=== PATIENT | female | born 1960 | race Caucasian/White ===

== ENCOUNTER 2019-04-06 21:43 | Inpatient (IN) | payer MEDICARE ==
[~2019-04-06] VITALS: Ht 162.6 cm; Wt 72.1 kg
--- NOTE | 2019-04-06 23:10 | NUR ---
PT NOT IN LOBBY WHEN CALLED.
--- NOTE | 2019-04-06 23:23 | NUR ---
PT FOUND IN WHEEL CHAIR OUTSIDE. STATES "I NEEDED FRESH AIR". PT WOULD STILL LIKE TO BE SEEN. PT TO RM [phone].
[2019-04-07 00:02] LABS: MEAN CORPUSCULAR HEMOGLOBIN 32.2 pg (27.0-34.8); MEAN CORPUSCULAR HGB CONC 33.2 g/dL (32.4-35.8); MEAN PLATELET VOLUME 9.8 fL (7.4-10.4); PLATELET COUNT 82 x10^3/uL (130-400); RED BLOOD COUNT 3.79 x10^6/uL (3.82-5.3); RED CELL DISTRIBUTION WIDTH 15.3 % (9.6-15.2)
[2019-04-07 00:10] LABS: ANION GAP 6 mmol/L (5-15); CALCIUM 7.9 mg/dL (8.5-10.1); CHLORIDE 108 mmol/L (98-107); CREATININE 0.74 mg/dL (0.55-1.02)
[2019-04-07 00:12] LABS: CREATINE KINASE, TOTAL 115 U/L (26-192)
[2019-04-07 00:23] LABS: BASOPHILS # (AUTO) 0.02 x10^3/uL (0-0.1); BASOPHILS % (AUTO) 1 % (0-1); EOSINOPHILS % (AUTO) 2 % (1-7); LYMPHOCYTES # (AUTO) 1.21 x10^3/uL (1-3.4); LYMPHOCYTES % (AUTO) 27 % (22-44); MD SCAN; MONOCYTES # (AUTO) 0.53 x10^3/uL (0.2-0.8); MONOCYTES % (AUTO) 12 % (2-9); NEUTROPHILS # (AUTO) 2.61 x10^3/uL (1.8-6.8); NEUTROPHILS % (AUTO) 58 % (42-75)
--- NOTE | 2019-04-07 01:14 | NUR ---
PT RETURNED FROM CT AT THIS TIME.
[2019-04-07] MEDS ORDERED: PIPERACILLIN/TAZO/PMX 3.375GM 50 ML ONE (02:16)
[2019-04-07] MEDS ORDERED: MORPHINE SULFATE 4 MG/ML, 1ML IVPush ONE (02:30)
[2019-04-07] MEDS ORDERED: VANCOMYCIN 1,300 MG in SODIUM CHLORIDE 0.9% 250 ML IV ONE (02:30)
[2019-04-07] MEDS ORDERED: PIPERACILLIN/TAZO/PMX 3.375GM 50 ML IV ONE (02:30)
[2019-04-07] MEDS ORDERED: VANCOMYCIN PER PHARMACY MC PRN (02:30)
[2019-04-07] MEDS ORDERED: MORPHINE SULFATE 4 MG/ML, 1ML ONE (02:36)
[2019-04-07 02:56] VITALS: BP 129/72
[2019-04-07] MEDS ORDERED: ACETAMINOPHEN 325 MG TABLET PO PRN ×2 (03:00→11:00)
[2019-04-07] MEDS ORDERED: hydrALAzine 20 MG/ML, 1ML IVPush PRN (03:00)
[2019-04-07] MEDS ORDERED: VANCOMYCIN PMX 1GM/200ML 200 ML IV ONE (03:00)
[2019-04-07] MEDS: AMPICILLIN/SULBACTAM 3 GM in SODIUM CHLORIDE 0.9% 100 ML IV SCH ×4 (04:35→22:46)
[2019-04-07] MEDS: SODIUM CHLORIDE 0.9% 1,000 ML IV SCH ×2 (04:35→17:41)
[2019-04-07] MEDS ORDERED: OMNIPAQUE 350 MG/ML, 100ML BOTTLE ONE (05:45)
[2019-04-07 06:50] VITALS: BP 107/79
[2019-04-07] MEDS: morphine SULFATE 10 MG/ML, 1ML IVPush PRN ×2 (09:11→20:58)
[2019-04-07] MEDS ORDERED: ROCURONIUM 10 MG/ML,10ML ONE (10:08)
[2019-04-07] MEDS ORDERED: ONDANSETRON 2MG/ML, 2ML ONE (10:08)
[2019-04-07] MEDS ORDERED: PROPOFOL 10 MG/ML, 20ML ONE (10:08)
[2019-04-07] MEDS ORDERED: SUCCINYLCHOLINE 20 MG/ML, 10ML ONE (10:08)
[2019-04-07] MEDS ORDERED: MIDAZOLAM 1 MG/ML, 2ML ONE (10:09)
[2019-04-07] MEDS ORDERED: FENTANYL PF 250 MCG/5ML ONE (10:09)
[2019-04-07] MEDS ORDERED: BUPIVACAINE/EPI 0.5% 1:200K INFIL ONE (10:29)
[2019-04-07] MEDS ORDERED: BUPIVACAINE/EPI 0.5% 1:200K ONE (10:30)
[2019-04-07] MEDS ORDERED: MEPERIDINE/PF 25MG/ML,1ML IVPush PRN (11:00)
[2019-04-07] MEDS ORDERED: MORPHINE SULFATE 4 MG/ML, 1ML IVPush PRN (11:00)
[2019-04-07] MEDS ORDERED: MIDAZOLAM 1 MG/ML, 2ML IV PRN (11:00)
[2019-04-07] MEDS ORDERED: LABETALOL 5MG/ML, 20ML IV PRN (11:00)
[2019-04-07] MEDS ORDERED: FENTANYL PF 100 MCG/2ML IV PRN (11:00)
[2019-04-07] MEDS ORDERED: PROMETHAZINE 12.5 MG SUPP PR PRN (11:00)
[2019-04-07] MEDS ORDERED: hydrALAzine 20 MG/ML, 1ML IV PRN (11:00)
[2019-04-07] MEDS ORDERED: OXYcodone 5 MG/5 ML ORAL.SOL UDC PO PRN (11:00)
[2019-04-07] MEDS ORDERED: PROMETHAZINE 25 MG/ML, 1ML IV PRN (11:00)
[2019-04-07] MEDS ORDERED: ALBUTEROL SULFATE 2.5 MG/3 ML NPPB PRN (11:00)
[2019-04-07] MEDS ORDERED: ONDANSETRON ODT 8 MG PO PRN (11:00)
[2019-04-07] MEDS ORDERED: HYDROmorphone 2 MG/ML, 1ML IVPush PRN (11:00)
[2019-04-07] MEDS ORDERED: DIAZEPAM 5 MG/ML, 2ML IVPush PRN (11:00)
[2019-04-07] MEDS ORDERED: ONDANSETRON 2MG/ML, 2ML IV PRN (11:00)
[2019-04-07] MEDS ORDERED: EPHEDRINE 50 MG/ML, 1ML IVPush PRN (11:00)
[2019-04-07] MEDS ORDERED: HALOPERIDOL 5 MG/ML IV PRN (11:00)
[2019-04-07] MEDS ORDERED: OXYcodone 5 MG/5 ML ORAL.SOL UDC ONE (11:12)
[2019-04-07 12:14] VITALS: BP 106/69
[2019-04-07 18:58] VITALS: BP 109/71
[2019-04-08 00:25] VITALS: BP 124/78
[2019-04-08] MEDS: morphine SULFATE 10 MG/ML, 1ML IVPush PRN ×5 (01:02→21:33)
[2019-04-08 03:59] VITALS: BP 106/68
[2019-04-08] MEDS: AMPICILLIN/SULBACTAM 3 GM in SODIUM CHLORIDE 0.9% 100 ML IV SCH ×4 (04:25→23:40)
[2019-04-08 05:36] LABS: MEAN CORPUSCULAR HEMOGLOBIN 32.4 pg (27.0-34.8); MEAN CORPUSCULAR HGB CONC 33.4 g/dL (32.4-35.8); MEAN CORPUSCULAR VOLUME 96.9 fL (80-100); MEAN PLATELET VOLUME 9.8 fL (7.4-10.4); PLATELET COUNT 64 x10^3/uL (130-400); RED BLOOD COUNT 3.65 x10^6/uL (3.82-5.3); RED CELL DISTRIBUTION WIDTH 14.9 % (9.6-15.2)
[2019-04-08 05:46] LABS: CALCIUM 7.8 mg/dL (8.5-10.1); CHLORIDE 112 mmol/L (98-107)
[2019-04-08 05:51] LABS: ALANINE AMINOTRANSFERASE 44 U/L (12-78); ALBUMIN 2.2 g/dL (3.4-5.0); ALKALINE PHOSPHATASE 133 U/L (45-117); ANION GAP 5 mmol/L (5-15); BILIRUBIN,TOTAL 0.7 mg/dL (0.2-1.0); CREATININE 0.71 mg/dL (0.55-1.02)
[2019-04-08 06:26] LABS: BASOPHILS # (AUTO) 0.01 x10^3/uL (0-0.1); BASOPHILS % (AUTO) 0 % (0-1); EOSINOPHILS # (AUTO) 0.14 x10^3/uL (0-0.4); EOSINOPHILS % (AUTO) 5 % (1-7); LYMPHOCYTES % (AUTO) 30 % (22-44); MD SCAN; MONOCYTES % (AUTO) 10 % (2-9); NEUTROPHILS # (AUTO) 1.66 x10^3/uL (1.8-6.8); NEUTROPHILS % (AUTO) 55 % (42-75)
[2019-04-08 07:53] VITALS: BP 136/90
[2019-04-08] MEDS: SODIUM CHLORIDE 0.9% 1,000 ML IV SCH (08:02)
[2019-04-08 14:21] VITALS: BP 115/76
[2019-04-08 19:57] VITALS: BP 133/88
[2019-04-09 01:21] VITALS: BP 125/77
[2019-04-09] MEDS: morphine SULFATE 10 MG/ML, 1ML IVPush PRN ×2 (03:03→09:20)
[2019-04-09 05:41] LABS: ALBUMIN 2.2 g/dL (3.4-5.0); ANION GAP 3 mmol/L (5-15); CHLORIDE 112 mmol/L (98-107)
[2019-04-09 05:44] LABS: ALANINE AMINOTRANSFERASE 47 U/L (12-78); ALKALINE PHOSPHATASE 171 U/L (45-117); BILIRUBIN,TOTAL 0.6 mg/dL (0.2-1.0); CREATININE 0.68 mg/dL (0.55-1.02)
[2019-04-09 05:50] LABS: MEAN CORPUSCULAR HEMOGLOBIN 32.4 pg (27.0-34.8); MEAN CORPUSCULAR HGB CONC 33.5 g/dL (32.4-35.8); MEAN CORPUSCULAR VOLUME 96.9 fL (80-100); MEAN PLATELET VOLUME 9.8 fL (7.4-10.4); PLATELET COUNT 72 x10^3/uL (130-400); RED BLOOD COUNT 3.69 x10^6/uL (3.82-5.3)
[2019-04-09] MEDS: AMPICILLIN/SULBACTAM 3 GM in SODIUM CHLORIDE 0.9% 100 ML IV SCH ×4 (05:52→23:16)
[2019-04-09 06:19] LABS: BASOPHILS # (AUTO) 0.01 x10^3/uL (0-0.1); BASOPHILS % (AUTO) 1 % (0-1); EOSINOPHILS # (AUTO) 0.18 x10^3/uL (0-0.4); EOSINOPHILS % (AUTO) 6 % (1-7); LYMPHOCYTES # (AUTO) 1.03 x10^3/uL (1-3.4); LYMPHOCYTES % (AUTO) 34 % (22-44); MD SCAN; MONOCYTES # (AUTO) 0.34 x10^3/uL (0.2-0.8); MONOCYTES % (AUTO) 11 % (2-9); NEUTROPHILS # (AUTO) 1.49 x10^3/uL (1.8-6.8); NEUTROPHILS % (AUTO) 49 % (42-75)
[2019-04-09 06:27] VITALS: BP 125/86
[2019-04-09] MEDS: OXYcodone IR 5MG TABLET PO PRN ×3 (12:55→21:26)
[2019-04-09 13:18] VITALS: BP 129/86
[2019-04-09 19:30] VITALS: BP 118/79
[2019-04-10 00:59] VITALS: BP 126/80
[2019-04-10] MEDS: OXYcodone IR 5MG TABLET PO PRN ×3 (03:33→15:46)
[2019-04-10] MEDS: AMPICILLIN/SULBACTAM 3 GM in SODIUM CHLORIDE 0.9% 100 ML IV SCH ×2 (05:18→11:00)
[2019-04-10 06:27] VITALS: BP 107/69
[2019-04-10] MEDS ORDERED: CEFD300C37 PO (10:25)
[2019-04-10] MEDS ORDERED: ACET325T26 PO (10:25)
[2019-04-10] MEDS ORDERED: OXYC5TAB3 PO (10:25)
[2019-04-10 12:32] VITALS: BP 107/70
== END 2019-04-10 15:52 | disposition home or self-care (01) | DRG 580 ==
LOC: ED 04-07 02:10 → EDIP 04-07 02:11 → 4NE 04-07 02:36 → DCLOUNGE 04-10 13:05
PROVIDERS: ADMIT Family Medicine; ATTEND Family Medicine
PROC: 0K9Q0ZZ Drainage of Right Upper Leg Muscle, Open Approach (ICD-10-PCS; principal; 2019-04-09)
DX: L02.415 Cutaneous abscess of right lower limb (principal); F11.20 Opioid dependence, uncomplicated; L03.115 Cellulitis of right lower limb; F17.210 Nicotine dependence, cigarettes, uncomplicated; B95.4 Other streptococcus as the cause of diseases classified elsewhere; E86.0 Dehydration; Z88.8 Allergy status to other drugs, medicaments and biological substances; Z88.6 Allergy status to analgesic agent; Z82.49 Family history of ischemic heart disease and other diseases of the circulatory system
CPT/HCPCS: 36415; 80048; 80053; 82550; 85025; 85651; 87040; 87070; 87075; 87205; 99285; G0378; J0295; J2250; J2405; J2543; J2704; J3010; Q9967; J0330; J2270; J7030

== ENCOUNTER 2019-04-12 23:07 | Emergency (ER) | payer MEDICARE ==
[~2019-04-12] VITALS: Ht 162.6 cm; Wt 66.8 kg
[~2019-04-12 23:07] MED LIST: ACET325T26 PO; CEFD300C37 PO; OXYC5TAB3 PO
[2019-04-12 23:18] VITALS: BP 136/86
--- NOTE | 2019-04-13 02:18 | NUR ---
Patient/Caregiver given discharge instructions and they have confirmed that they understand the instructions. Patient ambulatory with steady gait.
== END 2019-04-13 02:20 | disposition home or self-care (01) ==
LOC: ED 23:59
DX: L02.31 Cutaneous abscess of buttock (principal); Z72.9 Problem related to lifestyle, unspecified
CPT/HCPCS: 99282